=== PATIENT | male | born 1975 | race Two or more races ===

== ENCOUNTER 2025-04-09 08:20 | Day surgery (SDC) | payer OTHER ==
[~2025-04-09] VITALS: Ht 175.3 cm; Wt 87.5 kg
[~2025-04-09 08:20] MED LIST: AMLO1TAB22 PO; DAPA1TAB4 PO; METF-372 PO; OMEGCAP28 OR
[2025-04-09] MEDS ORDERED: LIDOCAINE 1% INJ PF 5ML AMP ONE (09:38)
[2025-04-09] MEDS ORDERED: PROPOFOL 10 MG/ML 20 ML IV ONE ×2 (09:38→09:54)
[2025-04-09 10:03] VITALS: PULSE 86; RESP 15; TEMP 97.5; O2SAT 98
--- NOTE | 2025-04-09 10:04 | DVHHP2 ---
GI H&P Pre-Op Assessment Date: 04/09/25 Chief complaint: colon cancer screening HPI: per clinic note Past medical history: per clinic note Past surgical history: per clinic note Family history: per clinic note Physical exam: General: NAD, AAOX3 HEENT: PERRL, no scleral icterus, normal hearing, gums without lesions or bleeding, oropharynx clear without erythema or exudate. Neck: Supple without enlargement of the thyroid, or lymphadenopathy. Chest: Normal size and shape, no tenderness, lung puri clear to auscultation and percussion, nonlabored breathing. Heart: RRR, no murmur Abdomen: non-distended, no tenderness to palpation, +BS, no hepatosplenomegaly Extremities: no edema Neurological: CN II-XII intact, sensation intact in all extremities, 5+ strength in all extremities Skin: No rashes, No jaundice Assessment: - colon cancer screening Plan: - Colonoscopy - Risks (bleeding, infection, perforation, reaction to sedation medications and cardiopulmonary arrest) and benefit of the procedure were explained to patient. Patient agrees to undergo the procedure. SONALI BUTLER MD Apr 09, 2025 10:04
--- NOTE | 2025-04-09 10:06 | DVHDS2 ---
Physician Discharge Progress N Final Diagnosis: Colon polyps Operations or Procedures: Operations or Procedures Colonoscopy with cold and hot snare polypectomy, clipping and injection Condition on Discharge: Good Disposition: Home Discharge Instructions: Diet: Regular Activity: No Restrictions, As Tolerated Medications: Resume previous home medications Follow Up Care: Discharge Statement: "Patient was advised to return to the ER or call 911 if any headaches, dizziness, shortness of breath, chest pain, abdominal pain, bleeding, fevers, or worsening of medical condition. Patient was counseled about treatment plan, medications, possible side effects, patientverbalized understanding. All questions were answered to the best of my ability. This discharge took greater then 30 minutes in planning, reviewing documentation, counseling the patient, and discussing with other team members." SONALI BUTLER MD Apr 09, 2025 10:06
--- NOTE | 2025-04-09 10:06 | DVHOP2 ---
Operative Report DATE OF OPERATION: 04/09/25 PROCEDURE: Colonoscopy. PREOPERATIVE INDICATION: The patient is a 50 -year-old male undergoing colonoscopy for colon cancer screening. POSTOPERATIVE DIAGNOSES: 1. 4 mm transverse colon polyp was removed with hot snare and retrieved. 2. A 2 mm descending colon polyp was removed with cold snare and retrieved. 3. A 1 cm sigmoid colon polyp at 25 cm from the anal verge. The base was clipped before the hot snare polypectomy. It was retrieved. The polypectomy site was tattooed. PROCEDURE PERFORMED BY: Keven Linder M.D. SCOPE: Olympus videocolonoscope. ASA CLASS: 3 PREOPERATIVE MEDICATIONS: MAC with Asad ZARATE PROCEDURE IN DETAIL: After obtaining an informed consent, the patient was placed on left lateral decubitus position. He was then sedated with the above medications. A rectal examination was performed that was normal. The colonoscope was then passed through the anus into the rectosigmoid and through the descending, transverse, and ascending colon up to the cecum with visualization of the appendiceal orifice, base of the cecum and the ileocecal valve. A 4 mm transverse colon polyp was removed with hot snare and retrieved. A 2 mm descending colon polyp was removed with cold snare and retrieved. A 1 cm sigmoid colon polyp at 25 cm from the anal verge. The base was clipped before the hot snare polypectomy. It was retrieved. The polypectomy site was tattooed. The colonoscope was then withdrawn. The patient tolerated the procedure well without difficulty. WITHDRAWAL TIME: 16 minutes QUALITY OF THE PREP: [place] Bowel Prep score: 6 COMPLICATIONS : None SPECIMENS: Colon polyps DISPOSITION: D/C to home PLAN: 1. Repeat colonoscopy base on biopsy result KEVEN LINDER MD Apr 09, 2025 10:06
[2025-04-09 10:25] VITALS: BP 111/79; PULSE 69; RESP 12; O2SAT 99
== END 2025-04-09 10:55 | disposition home or self-care (01) ==
LOC: GI 08:20
PROVIDERS: ATTEND Internal Medicine Gastroenterology
DX: Z12.11 Encounter for screening for malignant neoplasm of colon (principal); D12.4 Benign neoplasm of descending colon; K63.5 Polyp of colon; R94.5 Abnormal results of liver function studies; I10 Essential (primary) hypertension; E78.5 Hyperlipidemia, unspecified; E11.9 Type 2 diabetes mellitus without complications; F17.210 Nicotine dependence, cigarettes, uncomplicated; E66.3 Overweight; Z68.28 Body mass index [BMI] 28.0-28.9, adult; Z79.84 Long term (current) use of oral hypoglycemic drugs; Z79.899 Other long term (current) drug therapy; Z85.528 Personal history of other malignant neoplasm of kidney; Z90.5 Acquired absence of kidney
CPT/HCPCS: 45381; 45385; 82962; 88305; J2704; J7030